=== PATIENT | female | born 1955 | race Caucasian/White ===

== ENCOUNTER 2020-11-11 19:44 | Observation (INO) ==
[2020-11-11] MEDS ORDERED: SODIUM CHLORIDE 0.9% 1,000 ML IV STA (20:23)
[2020-11-11] MEDS ORDERED: MORPHINE 4 MG/1 ML VIAL IV STA (20:23)
[2020-11-11] MEDS ORDERED: ONDANSETRON 4 MG/2 ML VIAL IV STA (20:23)
[2020-11-11] MEDS ORDERED: PIPERACILLIN/TAZOBACTAM 3,375 MG in SODIUM CHLORIDE 0.9% 100 ML IV STA (20:24)
[2020-11-11 21:36] LABS: Basophils % 0.3 % (0.0-0.8); Eosinophils # 0.1 10*3/uL (0.0-0.87); Eosinophils % 1.2 % (0.00-10.9); Hematocrit 28.3 VOL% (35.7-47.0); Hemoglobin 8.1 GM/DL (12.0-16.0); Immature Granulocytes % 0.8 %; Immature Granulocytes Absolute 0.06 #; Lymphocytes # 1.7 10*3/uL (1.4-4.0); Lymphocytes % 22.6 % (21.3-54.2); Mean Corpuscular HGB Conc 28.6 GM/DL (32-36); Mean Corpuscular Volume 78.6 FL (87-102); Mean Platelet Volume 8.6 FL (9.6-12.0); Monocytes % 4.8 % (1.7-12.7); Neutrophils % 70.3 % (38.7-73.9); Platelet Count 520 T/CUMM (130-400); Red Cell Distribution Width 16.6 % (9.3-17.3); White Blood Count 7.3 T/CUMM (4-12)
[2020-11-11 22:00] LABS: Lymphocytes 20 % (20-55); Segmented Neutrophils 78 % (50-85); Total Cells Counted 100
[2020-11-11 22:01] LABS: Anisocytosis 1+; Elliptocytes Few; Hypochromasia 1+; Polychromasia Slight
[2020-11-11 22:02] LABS: Alanine Aminotransferase 15 U/L (13-56); Albumin 1.7 G/DL (3.4-5.0); Alkaline Phosphatase 82 U/L (45-117); Aspartate Amino Transferase 28 U/L (0-37); Bilirubin,Total < 0.39 MG/DL (0.2-1.0); Blood Urea Nitrogen 27 MG/DL (7-18); Calcium 8.8 MG/DL (8.5-10.1); Carbon Dioxide 26 MMOL/L (21-32); Estimated Glom Filtration Rate 86 ML/MIN; Glucose 104 MG/DL (74-106); Osmolality,Calculated 279.7 MOS/KG (273-304); Platelet Estimate Increased; Potassium 4.1 MMOL/L (3.5-5.1); Sodium 138 MMOL/L (136-145); Total Protein 7.4 G/DL (6.4-8.3); Troponin I < 0.015 NG/ML (0.00-0.045)
[2020-11-11] MEDS ORDERED: MAGNESIUM SULF RIDER 2 GM in PREMIX 1 EACH IV STA (22:04)
[2020-11-12] MEDS ORDERED: guaiFENesin/DM ER 600-30 MG TABLET PO PRN (00:02)
[2020-11-12] MEDS ORDERED: ZALEPLON 5 MG CAPSULE PO PRN ×2 (00:02→00:05)
[2020-11-12] MEDS ORDERED: ONDANSETRON 4 MG/2 ML VIAL IV PRN (00:02)
[2020-11-12] MEDS ORDERED: hydrALAZINE 20 MG/1 ML VIAL IV PRN (00:02)
[2020-11-12] MEDS ORDERED: diphenhydrAMINE CAP 25 MG CAPSULE PO PRN (00:02)
[2020-11-12] MEDS ORDERED: GLUCAGON 1 MG VIAL IM PRN (00:02)
[2020-11-12] MEDS ORDERED: MORPHINE 4 MG/1 ML VIAL IV PRN (00:02)
[2020-11-12] MEDS ORDERED: ACETAMINOPHEN 325 MG TABLET PO PRN (00:02)
[2020-11-12] MEDS ORDERED: DEXTROSE 50% 25 GM/50 ML VIAL IV PRN (00:02)
[2020-11-12] MEDS ORDERED: ALUMINUM/MAGNES/SIMETH MAX STR 30 ML UDCUP PO PRN (00:02)
[2020-11-12] MEDS ORDERED: NICOTINE 21 MG/24 HR PATCH TRANSDERM PRN (00:02)
[2020-11-12] MEDS: PIPERACILLIN/TAZOBACTAM 3,375 MG in SODIUM CHLORIDE 0.9% 100 ML IV SCH ×2 (05:48→14:31)
[2020-11-12 05:54] LABS: Basophils % 0.3 % (0.0-0.8); Eosinophils # 0.1 10*3/uL (0.0-0.87); Eosinophils % 1.6 % (0.00-10.9); Hematocrit 26.3 VOL% (35.7-47.0); Hemoglobin 7.5 GM/DL (12.0-16.0); Immature Granulocytes % 0.7 %; Immature Granulocytes Absolute 0.05 #; Lymphocytes # 1.6 10*3/uL (1.4-4.0); Lymphocytes % 21.6 % (21.3-54.2); Mean Corpuscular HGB Conc 28.5 GM/DL (32-36); Mean Corpuscular Volume 79.2 FL (87-102); Mean Platelet Volume 8.8 FL (9.6-12.0); Monocytes % 5.1 % (1.7-12.7); Neutrophils % 70.7 % (38.7-73.9); Platelet Count 520 T/CUMM (130-400); Red Blood Count 3.32 MC/CUMM (3.8-5.5); Red Cell Distribution Width 16.8 % (9.3-17.3); White Blood Count 7.5 T/CUMM (4-12)
[2020-11-12 06:14] LABS: Calcium 8.8 MG/DL (8.5-10.1); Osmolality,Calculated 282.4 MOS/KG (273-304); Potassium 3.9 MMOL/L (3.5-5.1)
[2020-11-12 06:34] LABS: Hypochromasia 2+; Microcytosis Slight; Ovalocytes Slight; Platelet Estimate Increased
[2020-11-12] MEDS ORDERED: ENOXAPARIN 40 MG/0.4 ML SYRINGE SUBCUT SCH (09:00)
[2020-11-12] MEDS ORDERED: DOCUSATE SODIUM 100 MG CAPSULE PO SCH (09:00)
[2020-11-12] MEDS ORDERED: DIPYRIDAMOLE/ASPIRIN 200-25 MG CAPSULE PO SCH (09:00)
[2020-11-12] MEDS ORDERED: CITALOPRAM 40 MG TABLET PO SCH (09:00)
[2020-11-12] MEDS ORDERED: PANTOPRAZOLE 40 MG TABLET PO SCH (09:00)
[2020-11-12] MEDS ORDERED: BUDESONIDE/FORMOTEROL 160-4.5 INHALER 6 GM INH SCH (09:00)
[2020-11-12] MEDS ORDERED: ROSUVASTATIN 20 MG TABLET PO SCH (09:00)
[2020-11-12 11:30] LABS: % Iron Saturation 7.3 % (18-50); Ferritin 327.6 ng/ml (8-252)
[2020-11-12 11:41] LABS: Hemoglobin 7.7 GM/DL (12.0-16.0); Mean Corpuscular HGB Conc 28.5 GM/DL (32-36); Mean Corpuscular Volume 79.9 FL (87-102); Red Blood Count 3.38 MC/CUMM (3.8-5.5); White Blood Count 7.2 T/CUMM (4-12)
[2020-11-12 11:42] LABS: Basophils % 0.4 % (0.0-0.8); Eosinophils # 0.1 10*3/uL (0.0-0.87); Eosinophils % 1.2 % (0.00-10.9); Immature Granulocytes Absolute 0.07 #; Lymphocytes # 1.6 10*3/uL (1.4-4.0); Lymphocytes % 22.6 % (21.3-54.2); Mean Platelet Volume 8.6 FL (9.6-12.0); Monocytes % 5.3 % (1.7-12.7); Neutrophils % 69.5 % (38.7-73.9); Platelet Count 523 T/CUMM (130-400); Red Cell Distribution Width 16.9 % (9.3-17.3)
[2020-11-12 11:57] LABS: Band Neutrophils 2 % (0-10); Eosinophils 1 % (0-10); Lymphocytes 25 % (20-55); Platelet Estimate Increased; Segmented Neutrophils 70 % (50-85); Total Cells Counted 100
[2020-11-12 11:58] LABS: Hypochromasia 2+; Microcytosis 1+; Ovalocytes Slight
[2020-11-12 12:08] LABS: Folate 6.1 NG/ML (5.38-24.0); Vitamin B12 756 PG/ML (211-911)
[2020-11-12 12:23] VITALS: BP 98/66
[2020-11-12 12:35] LABS: Sedimentation Rate-Westergren 117 MM/HR (0-30)
[2020-11-15 08:47] LABS: Hemoglobin A1 (Alkaline) 97.8 % (96.5-98.5); Hemoglobin A2 (Alkaline) 2.2 % (1.5-3.5)
== END 2020-11-12 18:30 ==
LOC: EDBD → EDUNIT# → N.ED 19:44 → N.EDINP 19:44 → N.TELEN 11-12 02:53
PROVIDERS: ADMIT Emergency Medicine; ATTEND Emergency Medicine